=== PATIENT | male | born 1950 | race Asian ===

== ENCOUNTER 2022-10-22 15:48 | Emergency (ER) | payer MEDICARE, OTHER ==
[~2022-10-22] VITALS: Ht 162.6 cm; Wt 75.0 kg
[2022-10-22] MEDS ORDERED: EMPA25TA3 PO (16:00)
[2022-10-22] MEDS ORDERED: APIX5TAB PO (16:00)
[2022-10-22 16:25] VITALS: BP 141/86
[2022-10-22] MEDS ORDERED: PERTUSS(ACELL),DIPH,TET VAC/PF 0.5 ML SYRINGE IM. ONE (16:30)
[2022-10-22] MEDS ORDERED: BACITRACIN 0.9 GM PACKET OINTMENT TP ONE (16:30)
== END 2022-10-22 17:55 | disposition home or self-care (01) ==
LOC: EMS 15:54
DX: S00.93XA Contusion of unspecified part of head, initial encounter (principal); E11.9 Type 2 diabetes mellitus without complications; E78.5 Hyperlipidemia, unspecified; E78.00 Pure hypercholesterolemia, unspecified; I10 Essential (primary) hypertension; W19.XXXA Unspecified fall, initial encounter; Y93.89 Activity, other specified; Y92.009 Unspecified place in unspecified non-institutional (private) residence as the place of occurrence of the external cause; Y99.8 Other external cause status
CPT/HCPCS: 70450; 72125; 82962; 90471; 90715; 99284